=== PATIENT | male | born 1955 | race African-American/Black ===

== ENCOUNTER 2022-10-24 18:58 | Emergency (ER) | payer OTHER, MEDICAID ==
[~2022-10-24] VITALS: Ht 167.6 cm; Wt 68.0 kg
--- NOTE | 2022-10-24 20:00 | NUR ---
DR. MONTGOMERY WITH PATIENT IN [facility] FOR [facility].
[2022-10-24] MEDS ORDERED: AMLO5TAB4 PO (20:04)
[2022-10-24 20:12] VITALS: BP_SYST 160
--- NOTE | 2022-10-24 20:17 | NUR ---
PT WAS SENT BY FACILITY FOR HTN. PT STATES HE HAS BEEN HAVING BARCENAS RELATED TO HTN, DENIES PAIN RIGHT NOW. VSS.
[2022-10-24 20:19] VITALS: BP_SYST 160
--- NOTE | 2022-10-24 20:40 | NUR ---
Patient given written and verbal discharge instructions and verbalizes understanding. ER DR. MONTGOMERY discussed with patient the results and treatment provided. Patient in stable condition. ID arm band removed. Rx of AMLODIPINE given. Patient educated on pain management and to follow up with PMD. Pain Scale 0. Opportunity for questions provided and answered. Medication side effect fact sheet provided.
== END 2022-10-24 20:19 | disposition home or self-care (01) ==
LOC: SED 18:58
DX: I10 Essential (primary) hypertension (principal); R51.9 Headache, unspecified; Z79.899 Other long term (current) drug therapy
CPT/HCPCS: 99283